=== PATIENT | female | born 1945 | race Caucasian/White ===

== ENCOUNTER 2019-10-25 23:47 | Inpatient (IN) | payer OTHER ==
[~2019-10-25] VITALS: Ht 162.6 cm; Wt 90.2 kg
[2019-10-26 00:45] VITALS: BP 157/91
[2019-10-26] MEDS ORDERED: ASA81BEC PO (01:32)
[2019-10-26] MEDS ORDERED: ACETAMINOPHEN325 MG PO (01:32)
[2019-10-26] MEDS ORDERED: BENZTROPINE MES1 MG PO (01:33)
[2019-10-26] MEDS ORDERED: BUSPIRONE HCL5 MG PO (01:33)
[2019-10-26] MEDS ORDERED: DILTIAZEM ER120 MG PO (01:34)
[2019-10-26] MEDS ORDERED: DIVALPROEX SOD500 M1 PO (01:35)
[2019-10-26] MEDS ORDERED: DULCOLAX10 MG RECTAL (01:36)
[2019-10-26] MEDS ORDERED: EUCERIN ADVANCE85 GM TOP (01:37)
[2019-10-26] MEDS ORDERED: LASIX 40 MG TAB40 MG PO (01:39)
[2019-10-26] MEDS ORDERED: FLEET ENEMA133 ML RECTAL (01:39)
[2019-10-26] MEDS ORDERED: GEODON20 MG PO (01:40)
[2019-10-26] MEDS ORDERED: MIRALAX17 GM PO (01:40)
[2019-10-26] MEDS ORDERED: HYDRALAZINE 2525 MG PO (01:41)
[2019-10-26] MEDS ORDERED: ICY HOT 4%-1%76.5 GM TOP (01:42)
[2019-10-26] MEDS ORDERED: ACIDOPHILUS1 EAC3 PO (01:43)
[2019-10-26] MEDS ORDERED: LEVO-T88 MCG PO (01:44)
[2019-10-26] MEDS ORDERED: LORAZEPAM 0.50.5 MG PO (01:45)
[2019-10-26] MEDS ORDERED: MELATONIN3 M1 PO (01:45)
[2019-10-26] MEDS ORDERED: TOPROL XL50 MG PO (01:46)
[2019-10-26] MEDS ORDERED: MILK OF MA400 MG/5 M PO (01:46)
[2019-10-26] MEDS ORDERED: REMERON15 M2 PO (01:47)
[2019-10-26] MEDS ORDERED: MYLANTA MAXIMU355 ML PO (01:48)
[2019-10-26] MEDS ORDERED: NOVOLOG FL100 UNIT/M SUBQ (01:50)
[2019-10-26] MEDS ORDERED: ZOFRAN4 MG PO (01:51)
[2019-10-26] MEDS ORDERED: NYAMYC15 GM TOP (01:51)
[2019-10-26] MEDS ORDERED: SENNA PLUS TAB1 EACH PO (01:52)
[2019-10-26] MEDS ORDERED: KLOR-CON M2020 MEQ PO (01:52)
[2019-10-26] MEDS ORDERED: VITAMIN D3 PO (01:56)
[2019-10-26] MEDS ORDERED: ZYRTEC10 M4 PO (01:56)
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
[2019-10-26 08:41] VITALS: BP 145/101
[2019-10-26 15:31] VITALS: BP 118/72
--- NOTE | 2019-10-26 15:33 | NUR ---
BLOOD PRESSURE AND PULSE NOTED TO BE ELEVATED UPON INITAL ASSESSMENT THIS AM AT 0800-AM CARDIZEM AND METOPROLOL PULLED WITH INTENT TO ADMINISTER EARLY BUT UPON APPROACH AT 0810 WITH MEDS PT REFUSED STATING 1ST THAT WATER WASN'T COLD ENOUGH THEN STATING WAS NAUSEATED THEN STATED COULD NOT SWALLOW-DR CINTRON CALLED AND ORDERS RECEIVED FOR ATIVAN IM-ATIVAN 1.5MG GIVEN IM IN LEFT DELTOID WITH MINIMAL REISITANCE-PARANOID,POINTING TO BRUISES ON HANDS FROM OLD IV'S,BLOOD DRAWS STATING "SEE WHAT YOU DID" AFTER APPROX 30 MINUTES DID COOPERATE WITH TAKING PO MEDS BUT HAD MULTIPLE STIPULATIONS BEFORE SHE WOULD TAKE-BP RECHECK AT 1100 AND IS 118/78-PULSE IS 88 AND REGULAR. GAIT UNSTEADY AND IS IMPULSIVE TRYING TO GET UP ON OWN -[place] RISK D/T IMPULSIVITY.BLOOD SUGAR AT 0700 240 AND AT 1130 IS 170. DENIES C/O PAIN/DISCOMFORT
--- NOTE | 2019-10-26 15:54 | NUR ---
SW spoke with pt's guardian/ dght Yessica and ocmpleted the intake assesmsnet and TP. Set up aily meeting for 3pm today with Dr kramer. Yessica reported that her mom has chronic mental ilness as does her only sibling and all of her aunts and uncles. Pt is also a survibor of lung cancer.. During the famiyl meeting she stated that this cycle of decomposition happne when there is a change in her routine. Dr kramer completed meds review and scheduled another meeting for monday 10/30 at 2pm. Pt will d/c back to [facility] at d/c . SW will send updates to [facility] and coordinate the d/c as needed
--- NOTE | 2019-10-26 18:03 | NUR ---
BLOOD PRESSURE RECHECK AT 1200 BP 118/74- PULSE IS 72. STOPPING ALL STAFF IN HALLWAY TELLING THEM THAT SHE HAD NOT BEEN FED X 2 DAYS AND SHE WAS DIABETIC AND WAS GOING TO PASS OUT-WHEN SHE HAD EATEN 2 MEALS AND HAD SNCK BLOOD SUGAR NOW ORDERED BY AND WAS 160-ALSO REPORTED TO PEOPLE THAT BRUISES ON HANDS WERE FROM BEING "THROWN AROUND AND SHAY ON INNER RIGHT WRIST MADE WITH MARKER WAS FROM HANDCUFFS-BRUISES PHOTOGRAPHED PER RESTORATION SILVERSMITH REQUEST AND IN FRONT OF CHART.
[2019-10-26 19:24] VITALS: BP 142/74
[2019-10-26 21:16] VITALS: BP 142/74
--- NOTE | 2019-10-27 03:57 | NUR ---
PATIENT HAS BEEN SLEEPING SINCE I CAME ON SHIFT. PATIENT BARELY OPENED HER EYES WHEN I ASSESSED HER TONIGHT. SHE WAS SO SEDATED FROM EARLIER PRN THAT I WAS UNABLE TO GET HER AWAKE ENOUGH TO TAKE HER HS MEDS. PATIENT'S VSS, HER RESPIRATIONS ARE REGULAR AND NO DISTRESS. LUNGS CLEAR. REGULAR INSULIN 6U GIVEN IN ABDOMEN D/T GLUCOSE OF 261. HRR. DOES NOT APPEAR TO BE IN ANY DISTRESS OR PAIN. PATIENT NOT TALKING TO THIS NURSE. PATIENT HAS BEEN SLEEPING SOUNDLY ALL SHIFT. BED IN LOW POSITION AND BED ALARM ON. FREQUENT ROUNDS TO ASSESS FOR STATUS AND SAFETY OF PATIENT. WC BESIDE BED.
[2019-10-27 09:06] VITALS: BP 110/70
--- NOTE | 2019-10-27 09:47 | NUR ---
SAINYA called and asked Yessica to email the scanned guardianship paperwork, this was printed off and added to pt's chart.
--- NOTE | 2019-10-27 12:35 | NUR ---
Sitting in WC without s/o distress. Alert and orientated X3. Participating in groups. Refused perineal exam during assessment but was compliant with rest of assessment. Refused AM meds with exception of insulin despite being approached 3 times. 10 mg geodon given IM per R deltoid. Continues to refuse PO meds at lunch. Calm. Denies SI/HI. Breath sounds clear t/o, bilaterally equal. Reg HR auscultated. Color pink with brisk capillary refill and palpable peripheral pulses. Refuses to wear CARIN hose. Minimal edema in lower extremities. Independent with voiding. Will attempt to obtain UA today. Active bowel sounds over soft, rounded abdomen.
--- NOTE | 2019-10-27 14:11 | NUR ---
SANIYA sent updates to [facility]
[2019-10-27 21:13] VITALS: BP 142/89
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
[2019-10-28] VITALS: BP 142/89
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
[2019-10-28 08:03] VITALS: BP 133/83
--- NOTE | 2019-10-28 17:58 | NUR ---
REFUSED ALL MEDS AND MEALS TODAY. MOBLITY IS W/C LEVEL, MOVES W/C WITH FEET. CONFUSED AND FORGETFUL. ORIENTED TO NAME ONLY. HAS NOT SLEPT ALL DAY. SPEECH DIFFICULT TO UNDERSTAND AT TIMES. NO C/O PAIN. INCONTINENT OF URINE.
[2019-10-28 20:00] VITALS: BP 133/83
--- NOTE | 2019-10-29 02:30 | NUR ---
ASSESSMENT: PT REMAIN IN WC WHILE AWAKE. PROPELLED HERSELF AROUND THE CORRIDOR AND DAYROOM. VSS, AFEBRILE. DENIES PAIN. ALERT TO NAME ONLY. REFUSED MEDICATIONS, DID RECEIVE INSULIN FOR BS OF 225. DR. CINTRON ORDERED A ONE TIME DOSE OF IM HALDOL AND LORAZEPAM TO BE GIVEN STAT. UA REMAINS PENDING. PT HAD ZERO SLEEP HOURS LAST IGHT. CURRENTLY PT IS ASLEEP AND HAS BEEN POST IM INJECTIONS. DOES ATTEMPT TO FOLLOW DIRECTIONS. DENIES PAIN. SLOW PROGRESS, WILL CONTINUE TO MONITOR.
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
[2019-10-29 07:51] VITALS: BP 98/71
--- NOTE | 2019-10-29 10:30 | NUR ---
Assumed care at 0700. Adamantly refused AM meds. She has some confusion as she thought she had not gotten her thyroid med-which she had, then said she already had gotten her AM meds when she had not. She was approached a couple of times to take her AM meds and she continues to refuse them. She was given IM Geodon. She has been removing her lap fidel X 2 and it was replaced. She used the phone calling at least 2 family members for 30 minutes total.
--- NOTE | 2019-10-29 11:54 | EKG ---
[facility] [place] [address] ELECTROCARDIOGRAM REPORT Name: SRINIVASAN DIAZ Room #: 524B-B ADM IN M.R.#: [id number] Admission: 10/26/19 Attend Phys: Silas Lozano DO Discharge: Date of : 49 Report #: [id number] THIS REPORT FOR: cc: JACKIE - No family physician/PCP FAM - No family physician/PCP Kenji Duran MD ~ THIS REPORT FOR: //name// [facility] Test Date: 2019-10-28 Test Time: 13:39:17 Pat Name: SRINIVASAN DIAZ Department: Room: [facility] B Gender: F Program Development Specialist: Nya MUSE : 1945 Requested By: Silas Lozano Order Number: [id number] MD: Kenji Duran Measurements Intervals [place] Rate: 124 P: 31 CA: 149 QRS: 23 QRSD: 76 T: -11 QT: 298 QTc: 428 Interpretive Statements Sinus tachycardia Consider anterior infarct Borderline T abnormalities, inferior leads No previous ECG available for comparison Electronically Signed On 10-29-2019 11:52:50 CDT by Kenji Duran [email or web address] <ELECTRONICALLY SIGNED> By: Kenji Duran MD 10/29/19 1152 1339 1339 Kenji Duran MD /EPI
--- NOTE | 2019-10-29 19:06 | NUR ---
Refused evening medication, given IM PRN. Refusing PO meds, given IM-PRN. Some relief from Tylenol for LE. Has periods of obnoxious verbalizations towards staff. She has used the phone at least three times talking to family. She manipulates lap fidel to keep it very loose.
[2019-10-29 20:02] VITALS: BP 126/82
--- NOTE | 2019-10-30 05:24 | NUR ---
Assumed care of pt @ 1900. Pt calm et cooperative at beginning of shift but became belligerent as the shift wore on. Pt refused all meds and insulin. Pt did allow RESIDENTIAL PROPERTY MANAGER to obtain blood sugar level @ 2015 of 258. Pt ambulates via w/c throughout the entire noc. Pt refused to retire to bed at . [facility]. Health assessment with no abnormalities at present time. Denies SI/HI @ present time. Socialized with peers in dayroom unitl everyone went to bed. Currently continues to wheel around halls in w/c making occasional snide remarks to staff as she passes. Will continue to monitor per protocol.
[2019-10-30 07:41] VITALS: BP 181/76
[2019-10-30 12:16] VITALS: BP 134/68
--- NOTE | 2019-10-30 12:19 | NUR ---
DID TAKE ALL OF AM MEDICATIONS WITH SOME ENCOURAGMENT THIS AM. INITAL BP ELEVATED AT 181/76-RECHECK AT 1200 134/68 P-72. DENIES CO PAIN/DISCOMFORT. WHEN MENTIONED THAT SHE HAD SERO SLEEP LAST NIGHT STATES "WELL YOU WOULDN'T EITHER IF YOU WERE GETTING THE CARE I HAVE-NO ONE IS TAKING CARE OF ME-YOU ARE ALL LYING TO ME I AM NOT A 4 YEAR OLD" REMINDED SEVERAL TIMES ABOUT NEEDING UA BUT REMOVES HAT RYDER FROM TOILET X1 THIS AM PRIOR TO VOIDING. USING WC TO GET AROUND UNIT BUT APPEARS AWARE OF OWN ABILITIES AND DOES NOT TRY TO GET UP ON OWN, EATING WELL BLOOD SUGAR AT 0700 IS [id number] BS 160. DENIES SI/SH/HI. ORIENTED TO P[ERSON/HOSPITAL.
[2019-10-30 19:48] VITALS: BP 99/74
--- NOTE | 2019-10-31 02:32 | NUR ---
ASSUMED PT CARE AROUND 1930. ALERT AND AWAKE. REFUSED ALL MEDICATION INCLDUING INSULIN INJECTION. TRIED TO EXPLAIN BENEFITS OF MEDICATIOS, BUT STILL REFUSED. NO S/S ACUTE DISTRESS NOTED OR REPORTED AT THIS TIME. WILL CONT TO MONITOR FOR ANY CHANGES IN CONDITION.
[2019-10-31 08:42] VITALS: BP 128/77
[2019-10-31 14:54] LABS: ALBUMIN 3.5 g/dL (3.4-5.0); CALCIUM 9.1 mg/dL (8.5-10.1); CREATININE 1.9 mg/dL (0.6-1.0); MAGNESIUM 1.9 mg/dL (1.8-2.4); TOTAL BILIRUBIN 0.2 mg/dL (<0.1-1.0); TOTAL PROTEIN 7.4 g/dL (6.4-8.2)
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
[2019-10-31 20:12] VITALS: BP 148/94
--- NOTE | 2019-11-01 02:10 | NUR ---
Assumed care on 10/31/19 @ 1900, propelling self in w/c. Became agitated and striking out when spoken to by staff. Fefused depakote sprinkles and threw the meds in pudding on the floor. Refused acucheck, insulin, heparin, and po ativan. Later requested Tylenol and was given ativan in strawberry yogart with tylenol tablets taken whole. Incontinent of bladder, redness noted under breasts and groin, order obtained for nystatin. In bed at this time, eyes closed, respirations even and unlabored. Bed in low position, bed alarm set. Will continue to monitor q 12 minutes for patient safety.
[2019-11-01 03:59] VITALS: BP 148/94
[2019-11-01 09:00] VITALS: BP 128/81
--- NOTE | 2019-11-01 10:07 | NUR ---
SW spoke with pt's daughter and provided an update. No concerns
[2019-11-01 10:45] VITALS: BP 117/76
--- NOTE | 2019-11-01 12:27 | NUR ---
Assess for length of stay. Admitted to [facility] with schizophrenia and behavior disturbance, CHF, and acute on chroni renal failure. Hx DM, PTSD, COPD,CHF, lung CA. Requires lasix, and also on diabetic medications with BG 160-253. Pleasant upon visit at lunch today. Was not eating her food, states "I don't like it". Has variable intake at meals 10-100% based on behaviors and foods served. Able to obtain some food preferences and will liberalize couple items on her carb control, 2g Na diet order. No significant wt changes. Low nutrition risk.
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
[2019-11-01 19:40] VITALS: BP 149/94
--- NOTE | 2019-11-02 00:27 | NUR ---
Assumed care of patient this pm shift. Patient is ornery, joking and following rn. Patient compliant this shift with medications. Patient takes medications whole with fluids. Patient ambulates via wheel chair. Patient denies pain. Patient denies hi/si. Patient is impulsive. Patients assessment shows clear breath sounds, active bowel sounds, and s1 s2 heard with auscultation. Patient is currently sitting outside of nurses desk in the hallway talking to rn as he writes. We will continue to monitor.
[2019-11-02 07:26] VITALS: BP 128/71
[2019-11-02 09:22] VITALS: BP 128/71
--- NOTE | 2019-11-02 11:26 | NUR ---
1120 RESUMMED CARE FROM OVERNIGTH SHIFT THIS AM, PATIENT SITTING IN DAY ROOM WAITNG FOR BREAKFAST. WHILE EATING PATIENT COMPLAINED TO ME THAT SHE HAD TROUBLE SWALLOWING. I CRUSHED HER MEDICATION AND PUT THEM INTO HER ORANGE JUICE. SHE THEN REFUSED TO DRINK THE JUICE SO I TRIED TALKING TO HER TO GET HER TO DRINK THE JUICE. I HAD TO GIVE PATTIENT AN IM OF GEODON 15 MG AFTER INJECTION PATIENT CALM COOPERATIVE. PATIENTS ABDOMEN SOFT ROUND BOWEL SOUNDS PRESENT IN 4 QUADRANTS. LUNGS CLEAR DENIES SI/HI/AH/VH AT PRESENT I AM TRYING TO GET A UA FROM PATIENT THIS AM FOR UA AND CULTURE. PATIENT GETS CONFUSED AT TIME AND WANTS TO CUSS AT STAFF WHEN SHE CANNOT HAVE HER ESY. WILL CONTIUNE TO MONITOR PATIENT FOR SAFETY AND BEHAVIORS.
--- NOTE | 2019-11-02 12:13 | NUR ---
SANIYA and Dr kramer spoke with Yessica and reported that pt was not making gains ans would have to d/c son. Yessica was concerned about this and stated in th past she has taken her mom to inpt psych right after a failed d/c. It was later discussed that Yessica was unaware that her mom was allergic to thorazine, and gave permission to try this with the pt. Dr kramer stated that d/c would be likely Thursday back to [facility]. SANIYA sent updates from 10/30 to 11/01 to [facility]
--- NOTE | 2019-11-02 12:46 | NUR ---
RT progress note- Mounika continues to be present in the milieu for much of the day. She is independent in much of her leisure as she is not friendly to her peers and does not tolerate them in return. Independently, Mounika paints with watercolors and searches through magazines for recipes. Will continue to provide engagement and social opportunities.
--- NOTE | 2019-11-02 13:30 | NUR ---
Jana sent updates to [facility]
--- NOTE | 2019-11-02 23:50 | NUR ---
Assumed care of patient this pm shift. Patient sitting in mileu. Patient ambulating with walker. Patient is continent of bowel and bladder. Patient denies hi/si. Patient denies pain. Patient is jovial and joking this evening. Patient takes medications whole. Patients assessment shows clear breath sounds, active bowel sounds, and s1 s2 heard with auscultation. Patient has been cooperative this evening but does occasionally speak obsenities. We will continue to monitor.
[2019-11-03 07:31] VITALS: BP 111/80
[2019-11-03 08:00] VITALS: BP 111/80
--- NOTE | 2019-11-03 08:00 | NUR ---
PT UP WITH WALKER WITH STEADY GAIT. PT WANTING TO HAVE A COMB AND HAIR TIE. PT LETS HER NEEDS KNOWN. PT LUNGS CLEAR, NO COUGH. PT DENIES ANY PAIN AT THIS TIME. PT DOESN'T HAVE CARIN HOSE ON.
--- NOTE | 2019-11-03 08:30 | NUR ---
PT TOOK MEDS THIS AM WITHOUT ANY ISSUES.
--- NOTE | 2019-11-03 10:59 | NUR ---
PT DRAWING AND COLORING WITH PAINT. PT STATED SHE HAS SOME PICTURES THAT SHE CAN'T FIND. PT HAS STORIES TO TELL ABOUT HER FAMILY, HARD TO UNDERSTAND DUE TO ACCENT. PT STATED SHE IS FROM [place].
--- NOTE | 2019-11-03 12:26 | NUR ---
Sw completed chart review and pt has started taking her meds whole. If this trend continues pt will dc/ to [facility] on Thursday.
--- NOTE | 2019-11-03 16:43 | NUR ---
PT UP AT DESK CRYING STATED SHE HAS TACHYCARDIA AND HER KIDNEYS ARE FAILING. PT USED PHONE EARLIER TODAY AND CALLED 911, PT IS TRYING TO GET AHOLD OF HER DAUGHTER. PT ALSO USED PHONE TO CALL SURGICAL GARMENT FITTER TO GET AHOLD OF DR. MEDINA. PT HAS TAKEN MEDS FOR THIS GLASS ENAMEL MIXER TODAY. PT DID REFUSED HEPARIN SQ INJECT. PT TALKED ABOUT HER BRUISES ON HER ARMS AND THAT SHE GETS BLOODY NOSES. PT DID REST IN DINING ROOM TODAY FOR A COUPLE OF HOURS. PT IS PAINTING AND DRAWING PICS FOR THE STAFF.
--- NOTE | 2019-11-03 18:28 | NUR ---
PT WALKED TO NURSES DESK AND SHE BECAME TIRED AND WANTED A CHAIR. PUT PATIENT IN RECLINER CHAIR AND WHEELED BACK TO TABLE. PT DRINKING COFFEE.
--- NOTE | 2019-11-03 21:55 | NUR ---
Care assumed of patient at 191: Patient seated in recliner, resting fairly well at start of shift. Patient started to wake up around 2029. Patient labile, suspicious look. Appears alert and oriented but was not fully compliant with nursing assessment. Patient irritable and agitated. Patient sarcastic and labile. Patient would smile at nurse then start screaming "f you". Patient cursing in Italian and Zimbabwean. Patient offered HS snack. Patient was not happy with any choices offered. Patient finally settled on wanting saltine crackers. Nurse offered saltine crackers when she reached out and hit nurse on the arm, knocking crackers onto the floor. Patient then started to spit on nurse. Patient refused to talk to the nurse about what she was upset about and continued to have rapid, repetitive speech. As nurse was walking away, patient kicked her legs out and kicked nurse. Attempted to provide PRN Ativan PO for agitation. Patient became increasingly aggressive to nurse while offering Ativan. Nurse then administered PRN Geodon IM. Required staff assist x3. Patient was incontinent of bladder. Refusing for staff to assist with ward care and linen change. Patient was speaking about how nurse needed to run her home better and clean "this home" more appropriately. But when asked where patient was located, she stated "f you". Patient seated in recliner in dayroom at this time. Refuses to wear Herbert hose at this time. Refuses to have legs elevated in recliner.
[2019-11-04 08:00] VITALS: BP 122/77
--- NOTE | 2019-11-04 08:57 | NUR ---
PT SITTING AT DINING ROOM TABLE. PT TOOK MEDS THIS AM WITHOUT ANY ISSUES. PT WAS STATING SHE HAD TACHYCARDIA, LISTENED TO HEART HAS REG. BEAT NO IRREGULAR RATE. PT DENIES ANY PAIN. PT REFUSED HEPARIN SUBQ. PT STILL TALKING ABOUT SHE HAD 50 PICTURES AND DON'T KNOW WHERE THEY ARE. PT TALKS ABOUT FAMILY MEMBERS AND HER SON.
[2019-11-04 10:44] VITALS: BP 122/77
--- NOTE | 2019-11-04 13:03 | NUR ---
PT COMPLAINED OF SOA TO THIS SKIP HOIST OPERATOR. OBTAINED ORDER FROM DR. Bartlett FOR RT TX PRN.
--- NOTE | 2019-11-04 15:41 | NUR ---
PT COMPLAIN OF SOA AND SHE STATED SHE HAS COPD. PT DIDN'T APPEAR IN RESP DISTRESS. PT GETTING RT TX AT THIS TIME AND TALKING WITH STAFF DURING TX.
[2019-11-04 19:28] VITALS: BP 133/76
--- NOTE | 2019-11-04 22:12 | NUR ---
Care assumed of patient at 1915: Patient seated in dayroom at start of shift. Patient interacting well with staff and peers. Patient appears happy, laughing, joking with others. Patient alert and oriented x3, disoriented on current situation. Occasional forgetfulness observed. Patient denies depression. Denies SI/HI/AH/VH. When asked if she was feeling anxious, patient stated she was having a "panic attack". No s/s of anxiety present. Patient offered PRN medication which she accepted. No delusional or paranoia behaviors observed. Patient did ask to call her brother who she states is serving in the [employer]. Patient was not able to recall the number and soon forgot that she had asked to call him. Patient has not shown any aggression or agitation. Patient has not been cursing at staff. Patient denies pain or discomfort. Denies shortness of breath. Patient declines to wear CARIN hose at this time. Patient is currently seated in recliner in dayroom, resting quietly.
[2019-11-05 09:03] VITALS: BP 133/51
[2019-11-05 09:47] VITALS: BP 133/51
--- NOTE | 2019-11-05 09:47 | NUR ---
0960 RESUMMED CARE FROM OVERNIGHT SHIFT THIS AM, PATIENT IN DAY ROOM THIS AM WITH MAGAZINES. PATIENT WAS FUSSING ABOUT ONE OF THE MALE PATIENTS TALKING TO MUCH. PATIENT ATE A LITTLE OF HER BREAKFAST I GAVE HER SOME ENSURE TO GIVE HER SOME NOURISHMENT. PATIENT TOOK MEDICATION WITHOUT INCIDENCE; PATIENT ABDOMEN SOFT ROUND BOWEL SOUNDS PRESENT IN ALL 4 QUADRANTS. PATIENT LUNGS CLEAR PATIENT HAS SOME CONFUSION AND ORIENTED TO SELF AND PLACE. PATIENT DENIES SI/HI/AH/VH AT PRESENT. PATIENT COOPERATIVE CALM WILL CONTINUE TO MONITOR PATIENT FOR SAFETY AND BEHAVIORS.
--- NOTE | 2019-11-05 17:16 | NUR ---
SW met with patient 1:1 in lieu of group due to COVID-19 restrictions. Patient engaged with SW. She discussed memories from [place] and invited SW to travel to the [facility] with her.
[2019-11-05 19:32] VITALS: BP 110/73
--- NOTE | 2019-11-05 22:04 | NUR ---
Care assumed of patient at 1915: Patient seated in dayroom at start of shift. Patient alert and oriented x3. Confusion and forgetfulness observed. Patient hyperverbal and loud at times. Patient attention seeking at times. Patient ate 100% HS snack. Denies SI/HI/AH/VH. Denies anxiety and depression. Denies pain or discomfort. Patient did have an episode of urinary incontinence. Patient was able to change brief, pants and complete ward care independently. No specific delusional or paranoia noted. No aggression observed. Patient continues to sit in dayroom and speak with others at this time.
[2019-11-06 07:33] VITALS: BP 117/56
[2019-11-06 09:40] VITALS: BP 117/56
--- NOTE | 2019-11-06 10:01 | NUR ---
SANIYA faxed updates to [facility].
--- NOTE | 2019-11-06 10:10 | NUR ---
1010 RESUMMED CARE FROM OVERNIGHT SHIFT THIS AM, PATIENT IN DAY ROOM TALKING WITH OTHER PATIENTS. PATIENT ATE BREAKFAST TOOK MEDICATION WITHOUT INCIDENCE. PATIENTS ABDOMEN SOFT ROUND BOWEL SOUNDS PRESENT LUNGS CLEAR, PATIENT STATES SHE HAD A SMALL BOWEL MOVEMENT THIS AM. I GAVE PATIENT SOME PRUNE JUICE TO HELP WITH CONSTIPATION. 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 I ASSURED THE PATIENT THAT HER PAPERS WERE IN HER ROOM, PATIENT HAS BEEN SUSPIOUS ABOUT DIFFERENT PATIENTS. PATIENT DENIES SI/HI/AH/VH AT PRESENT WILL CONTINUE TO MONITOR PATIENT FOR SAFETY AND BEHAVIORS.
--- NOTE | 2019-11-06 15:34 | NUR ---
SW met with patient 1:1 today. Patient was very talkative but spoke in a whisper. SW was not able to ascertain what patient was talking about. SW encouraged to speak up but SW was still unable to understand content of patient's conversation.
[2019-11-06 19:59] VITALS: BP 137/78
--- NOTE | 2019-11-07 02:33 | NUR ---
ASSUMED CARE ON 10/07/2019 @ 19:15, SEATED IN THE DAY ROOM IN A CHAIR AT A TABLE. COOPERATED WITH ASSESSMENT, HRRR, S1S2 AUSCULTATED, BOWEL SOUNDS ACTIVE ROUND ABDOMEN WITH A LARGE BRUISE NOTED. C/O HEADACHE AND REQUESTS VICODIN. NO VICODIN ON PATIENT'S MAR, ACETAMINOPHEN 650 PROVIDED @ 21:13 FOR 5/10 GENERAL AND HEADACHE PAIN. COMPLIANT WITH MEDICATION ADMINISTRATION. DENIES SI, HI, AH, VH. FALLING ASLEEP IN A CHAIR IN THE DAYROOM, TRANSFERRED TO BEDROOM, INCONTINENT, REDNESS IN GROIN NOTED, PT RESISTED MILLIE CARE, CLEANED AND LOTION APPLIED TO RED AREA. WHEN TRANSFERRED FROM CHAIR TO BSC AND BED, POOR COOPERATION WITH WEIGHT BEARING, STAND AND PIVOT. COMPLAINED ABOUT GOING TO BED. LAID IN BED @ 00:15. BED IN LOW POSITION, BED ALARM SET.
[2019-11-07 02:58] VITALS: BP 137/78
[2019-11-07 07:31] VITALS: BP 119/79
[2019-11-07 12:38] VITALS: BP 119/79
--- NOTE | 2019-11-07 16:58 | NUR ---
ASSUMED CARE AT 0700 THIS MORNING. PT. TALKING LOUDLY IN THE DINING RROM AND AT TIMES CURSING. SHE WILL SAY FUCKER AND SHUT UP. SHE HAS TO BE REMINDED BY STAFF TO NOT TALK LOUDLY AND PLEASE REFRAIN FROM USING LOUD VERBALS AND SUCH LANGUAGE. SHE TOOK ALL HER MORNING MEDICATIONS THIS MORNING. AFTER HER MEDS WERE TAKEN SHE WAS MUCH QUIETER IN HER TONE OF VOICE AND VERBAL CURSING. SHE REMAINED PRETTY COMPLIANT TODAY. THE REDNESS UNDER HER APRON, BY HER LEGS AND UNDER HER BREAST WAS WASHED OFF. NYSTATIN POWDER WAS APPLIED. PT. STATES SHE USES SOAP TO WASH THOSE AREAS. THEY DO REMAIN RED. SHE WAS INFORMED THAT IF SHE USES SOAP, SHE NEEDS TO RINSE IT OFF. SHE SHOOK HER HEAD LIKE SHE UNDERSTOOD.
[2019-11-07 19:31] VITALS: BP 132/66
--- NOTE | 2019-11-07 23:48 | NUR ---
Assumed care of patient this pm shift. Patient in good spirits ambulating with walker around the day room. Patient denies pain. Patient denies hi/si. Patient is continent of bowel and bladder. Patient often uses foul language in an attempt to be humorus. Patient takes medications whole. Patient did not refuse any medications this evening. Patients assessment shows clear breath sounds, active bowel sounds, and s1 s2 heard with auscultation. Patient is eagerly anticipating discharge and states "I am going to take you with me to [place] where the food is wonderful." We will continue to monitor.
[2019-11-08 06:06] LABS: ABSOLUTE NEUTROPHILS 3.8 thou/uL (1.4-8.2); BASOPHILS 0.9 % (0.0-2.0); EOSINOPHILS 2.3 % (0.0-3.0); HEMATOCRIT 36.3 % (37.0-47.0); HEMOGLOBIN 11.7 gm/dL (12.0-15.0); LYMPHOCYTES 32.1 % (24.0-44.0); MCHC 32.2 g/dL (28.0-37.0); MCV 90.1 fL (80.0-100.0); MONOCYTES 10.6 % (1.0-8.0); PLATELET COUNT 221 thou/uL (150-400); POLYS 54.1 % (36.0-66.0); RBC 4.03 mil/uL (4.20-5.00); WBC 7.1 thou/uL (4.0-11.0)
[2019-11-08 06:35] LABS: ALBUMIN 3.5 g/dL (3.4-5.0); CALCIUM 8.5 mg/dL (8.5-10.1); MAGNESIUM 2.1 mg/dL (1.8-2.4); PHOSPHORUS 3.5 mg/dL (2.5-4.9); POTASSIUM 4.7 mmol/L (3.5-5.1); TOTAL BILIRUBIN 0.4 mg/dL (<0.1-1.0); TOTAL PROTEIN 7.8 g/dL (6.4-8.2)
[2019-11-08 08:18] VITALS: BP 134/74
--- NOTE | 2019-11-08 09:29 | NUR ---
Jana spoke with Leonor olvera and confirmed the 2pm orange picking supervisor today. JANA compelted the DA 124 C and faxed the d/c summary and orders to [phone]. FAX confimration left with packet on chart. Jana made packet and left it on chart, Sw also reported this to nursing.
[2019-11-08] MEDS ORDERED: LEVALBUTER1.25 MG/0. INH (11:45)
[2019-11-08] MEDS ORDERED: GEODON 80 MG CA80 MG PO (11:46)
[2019-11-08] MEDS ORDERED: TYLENOL EXTRA500 MG PO (11:46)
[2019-11-08] MEDS ORDERED: COLACE 100 MG100 MG PO (11:47)
[2019-11-08] MEDS ORDERED: LORAZEPAM 1 MG T1 MG PO (11:47)
[2019-11-08] MEDS ORDERED: AMARYL2 MG PO (11:48)
--- NOTE | 2019-11-08 14:55 | NUR ---
1000 Sitting in day room most of morning, conversive with staff and peers. Speaking in loud voice but quiets with redirection. Compliant with meds and cares. 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 Grandiose. Alert and orientated X4, denies SI/HI. Breath sounds clear t/o. Reg HR auscultated. Color pink with brisk capillary refill and palpable peripheral pulses. +1 nonpitting edema in lower legs. Active bowel sounds over soft rounded abdomen, states last BM was 2 days ago. Ambulating t/o unit with walker, steady gait. Excoriated, erythema in inguinal areas and under L breast. Large dark bruise on L thigh. Fading bruises on hands, arms. 1530 Report called to [facility]. Belongings per inventory sheet placed in bag. Called guardian Yessica Mcintosh to inform of transfer. Did not have privacy code. States will call back with code. 1400 Discharge instructions given to Mounika, signed paperwork. Yessica Mcintosh called back and was able to provide privacy code. Asked if we could keep patient longer because she was still mentally ill. Explained that behavior was now manageable but medications were not a cure. States she is "not on board" with decision to transfer and would like to talk with Dr. Lozano. Spoke with Dr. Lozano and transferred phone call to him. He spoke with daughter Yessica at length and then stated to proceed with transfer. 1415 Placed in WC and wheeled to front entrance where [facility] placed in their WC and then in van. Pt. happy and conversive without s/o distress.
--- NOTE | 2019-11-09 22:03 | D ---
[facility] [place] [address] DISCHARGE SUMMARY Name: SRINIVASAN DIAZ Room #: 524B-B [facility] IN M.R.#: [id number] Admission: 10/26/19 Attend Phys: Silas Lozano DO Discharge: 11/08/19 Date of : 49 Report #: [id number] THIS REPORT FOR: cc: JACKIE Katz family physician/PCP JACKIE - No family physician/PCP Silas Lozano DO ~ THIS REPORT FOR: //name// CC: Silas MEJIA physician/PCP DATE OF SERVICE: 11/08/2019 INPATIENT PSYCHIATRIC DISCHARGE SUMMARY ATTENDING PHYSICIAN: Silas Lozano DO YARD MOTOR OPERATOR AT THE TIME OF DISCHARGE: Pacheco Villegas MD DISCHARGE DIAGNOSES: Schizoaffective disorder, bipolar type; major neurocognitive disorder, mild degree of uncertain etiology. MEDICAL COMORBIDITIES: As follows: Urinary tract infection, pt refused culture so We went ahead and treated her with ceftriaxone. Acute on chronic renal failure, creatinine stable. Candidiasis, treated with nystatin with mild improvement, recommend reevaluation at nursing facility. Diabetes mellitus, uncontrolled, the patient was treated with glimepiride and dietary efforts. She had tachycardia which was controlled with beta-carter, Cardizem; hypertension; congestive heart failure. Sodium restriction was recommended, however, did not firmly do that. DISCHARGE PLAN: Discharging to [facility] on the [facility]. Psychiatric medical care per the receiving facility. She should be on a diabetic 1800-calorie diet. ACTIVITY LEVEL: As tolerated. The patient does require 24/ care and supervision. DISCHARGE MEDICATIONS: Xopenex 1.25 mg inhaled q. 4 hours p.r.n. for shortness of breath and wheezing; acetaminophen 1000 mg p.o. b.i.d. scheduled, recommended for pain; Ziprasidone 80 mg p.o. at 0900, 1700 with 500 calories essential for impulse control and mood stabilization, lorazepam 1 mg p.o. at 2200 p.r.n. for sleep, docusate 100 mg p.o. daily for bowel motility, glimepiride 2 mg p.o. daily with breakfast for diabetes mellitus, aspirin 81 mg daily for heart protection, diltiazem 120 mg p.o. daily for fast heart rate or heart failure, [address] [place] [address] [facility]: [facility]B [facility] M.R.#: [id number] Admission: 10/26/19 Attend Phys: Silas Lozano DO Discharge: 11/08/19 Date of : 49 Report #: [id number] levothyroxine 88 mcg p.o. daily for hypothyroidism, potassium chloride 20 mEq p.o. daily for supplementation, vitamin D3 of 2000 International Units p.o. daily; metoprolol succinate which is extended release 50 mg p.o. daily for the heart as well as hypertension. LABORATORY DATA: The patient's laboratories from this admission are as follows: Hematology: White cell count 7.1, H and H 7.7 and 36.3, so she is mildly anemic, and platelet count 221. Chemistries: Sodium 138, potassium 4.7, chloride 104, bicarbonate 26, BUN 23, creatinine 2.0, estimated GFR 24, glucose 158, calcium 8.5, phosphorus 3.5, magnesium 2.1, total bilirubin 0.4, AST 29, ALT 38, alkaline phosphatase 109, total protein 7.8, albumin 3.5, that was done 11/08/2019. Toxicology: Depakote level on 10/30/2019 was 39. The Depakote was discontinued due to noncompliance of the several days after that. REASON FOR ADMISSION: Back on 10/26/2019 is as follows: A 74-year-old female, [facility]. Long history of mental illness, schizoaffective picture. Apparently, she was sent to [facility] ER. REASON FOR ER PRESENTATIONS: Aggressive behavior, combative this morning, striking at staff and verbally abusive. She was transferred for Geriatric Psych hospitalization. HOSPITAL COURSE: The patient was admitted to Geriatric Psychiatry Unit. Initially, I was treating her combined with a mood stabilizer. We ran into compliance problems. I elected to go with Geodon monotherapy. I had considered adding Thorazine instead of Geodon; however, with the 3 times a day dosing, I felt this was too questionable. The patient would be compliant with that. Fortunately, she turned the corner, maintained decent compliance for the last 3-4 days before discharge. PHYSICAL EXAMINATION: GENERAL: At the time of discharge, the patient was grandiose, but not suicidal, homicidal, and redirectable. MUSCULOSKELETAL: She can ambulate but uses wheelchair or walker, unkempt. MENTAL STATUS EXAMINATION: This is a well-developed, somewhat ill-appearing, obese female, appearing in her stated age. Attention limited. Concentration limited. Speech is normal rate. Thought process is linear and goal directed. Thought content, focused on things she finds comical like going to [place] and dancing. Denied SI or HI. Denied auditory, visual, or tactile hallucinations. Insight limited. Judgment limited. Fund of knowledge, no greater than average. PROGNOSIS: Guarded. The patient is under guardianship by her daughter, long history of chronic mental illness, needs behavioral health nursing [facility] [address] [place] [address] DISCHARGE SUMMARY Name: SRINIVASAN DIAZ Room #: 524B-B [facility] IN M.R.#: [id number] Admission: 10/26/19 Attend Phys: Silas Lozano DO Discharge: 11/08/19 Date of : 49 Report #: [id number] home placement. Several comorbidities as described above. <ELECTRONICALLY SIGNED> By: Silas Lozano DO 11/09/19 220 [id number] 42 Silas Lozano DO /nt
== END 2019-11-08 14:15 | DRG 885 ==
LOC: SBH 23:47
PROVIDERS: Internal Medicine; ADMIT Psychiatry & Neurology Psychiatry
DX: F25.0 Schizoaffective disorder, bipolar type (principal); F01.50 Vascular dementia, unspecified severity, without behavioral disturbance, psychotic disturbance, mood disturbance, and anxiety; N17.9 Acute kidney failure, unspecified; N18.9 Chronic kidney disease, unspecified; N39.0 Urinary tract infection, site not specified; F02.81 Dementia in other diseases classified elsewhere, unspecified severity, with behavioral disturbance; I13.0 Hypertensive heart and chronic kidney disease with heart failure and stage 1 through stage 4 chronic kidney disease, or unspecified chronic kidney disease; F29 Unspecified psychosis not due to a substance or known physiological condition; J44.9 Chronic obstructive pulmonary disease, unspecified; E03.9 Hypothyroidism, unspecified; E11.51 Type 2 diabetes mellitus with diabetic peripheral angiopathy without gangrene; F41.9 Anxiety disorder, unspecified; F43.10 Post-traumatic stress disorder, unspecified; G30.9 Alzheimer's disease, unspecified; Z91.040 Latex allergy status; I50.9 Heart failure, unspecified; B37.9 Candidiasis, unspecified; G40.909 Epilepsy, unspecified, not intractable, without status epilepticus; I48.91 Unspecified atrial fibrillation; Z88.6 Allergy status to analgesic agent; Z88.8 Allergy status to other drugs, medicaments and biological substances; Z86.718 Personal history of other venous thrombosis and embolism; Z88.2 Allergy status to sulfonamides; Z90.49 Acquired absence of other specified parts of digestive tract; Z90.710 Acquired absence of both cervix and uterus; Z86.711 Personal history of pulmonary embolism; X58.XXXA Exposure to other specified factors, initial encounter; Y93.89 Activity, other specified; Y92.89 Other specified places as the place of occurrence of the external cause; Y99.8 Other external cause status; Z85.118 Personal history of other malignant neoplasm of bronchus and lung; E11.22 Type 2 diabetes mellitus with diabetic chronic kidney disease
CPT/HCPCS: 10880